=== PATIENT | female | born 1945 | race American Indian/Alaskan Native ===

== ENCOUNTER 2019-12-31 11:22 | Emergency (ER) | payer MEDICARE ==
--- NOTE | 2019-12-31 12:36 | Emergency Department Report ---
- General Chief complaint: Skin/Abscess/Foreign Body Stated complaint: LFT FOOT BOIL/PAIN Time Seen by Provider: 12/31/19 12:09 Source: patient, EMS Mode of arrival: Stretcher Limitations: No Limitations, Physical Limitation - History of Present Illness Initial comments: Chief complaint: I have a blister on my foot HPI: This is a 74-year-old female with history of congestive heart failure, diabetes mellitus, hypertension, hyperlipidemia who presents with foot blister. On the left foot there is a large flesh-colored blister. Patient is nonambulatory. She has been bedbound for 5 years. No trauma. No sarkar. She stated that she had a similar blister several months ago. She has not followed by circular saw operator. No pain. No fever. Patient is in her general state of health. MD complaint: other (Left foot blister) -: Gradual, days(s) (Several days) Location: L foot Severity: mild Consistency: constant Improves with: none Worsens with: none Associated symptoms: denies other symptoms - Related Data Allergies Allergy/AdvReac Type Severity Reaction Status Date / Time No Known Allergies Allergy Unverified 12/31/19 11:32 Abscess Boil HPI - HPI Chief Complaint: Skin/Abscess/Foreign Body Stated Complaint: LFT FOOT BOIL/PAIN Time Seen by Provider: 12/31/19 12:09 Allergies/Adverse Reactions: Allergies Allergy/AdvReac Type Severity Reaction Status Date / Time No Known Allergies Allergy Unverified 12/31/19 11:32 ED Review of Systems ROS: Stated complaint: LFT FOOT BOIL/PAIN Other details as noted in HPI Constitutional: denies: fever, malaise Respiratory: denies: cough, shortness of breath Cardiovascular: denies: chest pain Gastrointestinal: denies: abdominal pain, nausea, vomiting Skin: rash, lesions ED Past Medical Hx - Past Medical History Hx Hypertension: Yes Hx Congestive Heart Failure: Yes Hx Diabetes: Yes Additional medical history: High cholesterol - Surgical History Past Surgical History?: No - Social History Smoking Status: Never Smoker Substance Use Type: None ED Physical Exam - General Limitations: No Limitations, Physical Limitation General appearance: alert, in no apparent distress - Eye Eye exam: Present: normal appearance - ENT ENT exam: Present: mucous membranes moist - Neck Neck exam: Present: normal inspection - Respiratory Respiratory exam: Absent: respiratory distress - Neurological Exam Neurological exam: Present: alert, oriented X3 - Psychiatric Psychiatric exam: Present: flat affect - Skin Skin exam: Present: other (Left foot: Volar surface large 8 cm bulla with serous fluid) ED Course Vital Signs 12/31/19 12/31/19 12/31/19 12:00 12:03 12:04 Temperature 97.9 F Pulse Rate 101 H Respiratory 19 18 18 Rate Blood Pressure 141/81 [Right] O2 Sat by Pulse 98 98 99 Oximetry - I & D Left Foot Type of Procedure: Simple Blade Size: 18-gauge needle I & D Procedure: sterile dressing applied Progress: With verbal informed consent, I prepped the area with alcohol at the lateral portion of the bulla. I punctured the bulla with 18 ga syringe. I used 35 cc syringe to suction the serous fluid. I applied gentle pressure to express the remainder of the fluid throug the small puncture opening. Nurse steam power plant operator applied nonstick sterile dressing. ED Medical Decision Making - Medical Decision Making Clinical impression: Diabetic bulla left foot. Aspiration of serous fluid perf ormed in order to prevent the risk from. Nonstick bandage applied by ED staff member. Patient referred to circular saw operator. Critical care attestation.: If time is entered above; I have spent that time in minutes in the direct care of this critically ill patient, excluding procedure time. ED Disposition Clinical Impression: Bullosis diabeticorum Disposition: DC-01 TO HOME OR SELFCARE Is pt being admited?: No Does the pt Need Aspirin: No Condition: Stable Additional Instructions: Please keep the area covered with a nonstick bandage. Please change the bandage every 2 days. Please return to the ER if you develop signs of infection including redness and drainage. Referrals: PRIMARY CARE, [Primary Care Provider] - 3-5 Days JONG BALES DPM [Staff Physician] - 3-5 Days
[2019-12-31 15:22] VITALS: BP 131/80
== END 2019-12-31 15:29 | disposition home or self-care (01) ==
LOC: EDSEX → ED 11:22
DX: E11.620 Type 2 diabetes mellitus with diabetic dermatitis (principal); L02.622 Furuncle of left foot; I11.0 Hypertensive heart disease with heart failure; I50.9 Heart failure, unspecified

== ENCOUNTER 2020-01-03 12:00 | Emergency (ER) | payer MEDICARE ==
--- NOTE | 2020-01-03 13:45 | Emergency Department Report ---
ED Extremity Problem HPI - General Chief complaint: Wound/Laceration Stated complaint: BLISTER ON LT FOOT Time Seen by Provider: 01/03/20 13:02 Source: patient Mode of arrival: Stretcher Limitations: No Limitations - History of Present Illness Initial comments: Patient is a 74-year-old F Citizen Of [place] female with diabetes who is also bedbound for the last 5 years who is presenting for for reevaluation of a blister on her left foot. Is a large baseball sized rounded area he has been continuously draining. In looking at the medical record patient was here 3 days ago and was a flesh-colored bulla which was incised with a 18-gauge needle and drained. Patient now complaining that the area is reddened. There is been continuous drainage. Severity scale (0 -10): 6 - Related Data Previous Rx's Medication Instructions Recorded Last Taken Type Clindamycin [Clindamycin CAP] 300 mg PO Q8H #21 cap 01/03/20 Unknown Rx Allergies Allergy/AdvReac Type Severity Reaction Status Date / Time No Known Allergies Allergy Unverified 12/31/19 11:32 ED Review of Systems ROS: Stated complaint: BLISTER ON LT FOOT Other details as noted in HPI Comment: All other systems reviewed and negative ED Past Medical Hx - Past Medical History Previous Medical History?: Yes Hx Hypertension: Yes Hx Congestive Heart Failure: Yes Hx Diabetes: Yes Additional medical history: High cholesterol - Social History Smoking Status: Never Smoker Substance Use Type: None - Medications Home Medications: Home Medications Medication Instructions Recorded Confirmed Last Taken Type Clindamycin [Clindamycin CAP] 300 mg PO Q8H #21 cap 01/03/20 Unknown Rx ED Physical Exam - General Limitations: No Limitations General appearance: alert, in no apparent distress - Head Head exam: Present: atraumatic, normocephalic - Eye Eye exam: Present: normal appearance - Neck Neck exam: Present: normal inspection - Respiratory Respiratory exam: Absent: respiratory distress - GI/Abdominal GI/Abdominal exam: Present: soft, normal bowel sounds - Extremities Exam Extremities exam: Present: normal inspection - Expanded Lower Extremity Exam Left Foot/Toe exam: Present: swelling (Patient with 3+ edema to the bilateral legs. Patient with a rounded erythematous area on the dorsum of the left foot. It does appear that there is some loose skin over this area consistent with the history of a recent bulla. Some generalized serous drainage from the lateral edge. There is no tenderness secondary to the patient's neuropathy). Absent: tenderness - Back Exam Back exam: Present: normal inspection - Neurological Exam Neurological exam: Present: alert, oriented X3 - Psychiatric Psychiatric exam: Present: normal affect, normal mood - Skin Skin exam: Present: warm, dry, intact, normal color. Absent: rash ED Course Vital Signs 01/03/20 12:38 Temperature 98.4 F Pulse Rate 101 H Respiratory 18 Rate Blood Pressure 135/82 [Right] O2 Sat by Pulse 98 Oximetry ED Medical Decision Making - Medical Decision Making Blister has not reaccumulated. Because of the patient's edema she does have some serous drainage and oozing. Erythematous area does appear to be a possible cellulitis as there is developed in the interim and this area is no longer is flesh-colored. I will start the patient on clindamycin will be discharged home follow-up with wound care Critical care attestation.: If time is entered above; I have spent that time in minutes in the direct care of this critically ill patient, excluding procedure time. ED Disposition Clinical Impression: Cellulitis of foot, Bullosis diabeticorum Disposition: DC-01 TO HOME OR SELFCARE Is pt being admited?: No Does the pt Need Aspirin: No Condition: Stable Instructions: Cellulitis (ED) [facility]errals[facility]Outside] - 3-5 Days Time of Disposition: 13:45
[2020-01-03] MEDS ORDERED: IBUPROFEN 800 MG TAB PO ONE (16:55)
[2020-01-03 20:06] VITALS: BP 128/78
== END 2020-01-03 19:30 | disposition home or self-care (01) ==
LOC: ED 12:00
DX: L03.116 Cellulitis of left lower limb (principal); E11.620 Type 2 diabetes mellitus with diabetic dermatitis; I11.0 Hypertensive heart disease with heart failure; I50.9 Heart failure, unspecified; Z79.2 Long term (current) use of antibiotics